=== PATIENT | male | born 1970 | race Caucasian/White ===

== ENCOUNTER → 2023-06-13 12:49 | Outpatient (REF) | payer OTHER, SELFPAY | LOC: HWEVLT 12:49 | PROVIDERS: ATTENDING PHYSICIAN Radiology Vascular & Interventional Radiology | DX: I83.891 Varicose veins of right lower extremity with other complications (principal) | CPT/HCPCS: 93971 ==

== ENCOUNTER → 2023-08-08 08:10 | Outpatient (REF) | payer OTHER, SELFPAY | LOC: HWEVLT 08:10 | PROVIDERS: ATTENDING PHYSICIAN Radiology Diagnostic Radiology | DX: I83.891 Varicose veins of right lower extremity with other complications (principal) | CPT/HCPCS: 36471 ==

== ENCOUNTER → 2024-03-24 13:14 | Outpatient (REF) | payer OTHER, SELFPAY | LOC: RAD 13:14 | PROVIDERS: ATTENDING PHYSICIAN Family Medicine | DX: M25.561 Pain in right knee (principal) | CPT/HCPCS: 73110 ==

== ENCOUNTER → 2024-04-29 10:29 | Outpatient (REF) | payer OTHER, SELFPAY | LOC: PAVMRI 10:29 | PROVIDERS: ATTENDING PHYSICIAN Orthopaedic Surgery; FAMILY PHYSICIAN Family Medicine | DX: M25.531 Pain in right wrist (principal) | CPT/HCPCS: 73221 ==

== ENCOUNTER → 2024-06-13 06:25 | Outpatient (REF) | payer OTHER, SELFPAY | LOC: MRI 06:25 | PROVIDERS: ATTENDING PHYSICIAN Orthopaedic Surgery; FAMILY PHYSICIAN Family Medicine | DX: M25.561 Pain in right knee (principal) | CPT/HCPCS: 73721 ==